=== PATIENT | male | born 1945 | race Hispanic/Latino ===

== ENCOUNTER 2023-07-28 05:40 | Observation (INO) | payer OTHER ==
[2023-07-23 13:38] LABS: BASOPHILS # (AUTO) 0.04 K/uL (0.00-0.20); BASOPHILS % (AUTO) 0.3 % (0.0-5.0); EOSINOPHILS # (AUTO) 0.22 K/uL (0.00-0.70); EOSINOPHILS % (AUTO) 1.8 % (0.0-8.0); HEMATOCRIT 29.3 % (42-54); IMMATURE GRANULOCYTE ABSOLUTE 0.09 K/uL (0-1); LYMPHOCYTES # (AUTO) 1.9 K/uL (1.0-4.8); LYMPHOCYTES % (AUTO) 15.5 % (21.0-51.0); MEAN CORPUSCULAR HGB CONC 34.1 g/dL (32.0-36.0); MEAN CORPUSCULAR VOLUME 96.7 fL (79-99); MONOCYTES % (AUTO) 8.2 % (3.0-13.0); NEUTROPHILS # (AUTO) 8.9 K/uL (1.8-7.7); NEUTROPHILS % (AUTO) 73.5 % (40.0-77.0); PLATELET COUNT (AUTO) 253 K/uL (130-400); RED BLOOD CELL COUNT(AUTO) 3.03 MIL/uL (4.50-6.20); RED CELL DISTRIBUTION WIDTH 13.5 % (11.0-15.5); WHITE BLOOD COUNT (AUTO) 12.1 K/uL (4.8-10.8)
[2023-07-23 13:45] VITALS: BP 146/67; PULSE 89; RESP 18
[~2023-07-28] VITALS: Ht 154.9 cm; Wt 70.9 kg
[2023-07-28] VITALS (38 sets, daily range): BP systolic 127–187; BP diastolic 47–95; PULSE 62–103; RESP 15–20; O2SAT 98–99
[~2023-07-28 05:40] MED LIST: AEC81 PO; ALBU6.7H14 IH; ATOR40TA71 PO; BUDE10.2 IH; CARV6.25 PO; CETI10TA57 PO; CYAN1TAB17 PO; DOXA4TAB3 PO; FAMO40TA7 PO; GLIP1TAB6 PO; HYDR50TA PO; LOSA100T59 PO; MONT-39 PO; OMEP40CA21 PO; SITA100T12 PO
[2023-07-28] MEDS ORDERED: CEFAZOLIN SODIUM 2 GM VIAL ONE (05:54)
[2023-07-28] MEDS ORDERED: 0.9%NACL 1000ML 1,000 ML IV ONE ×2 (05:54→11:15)
[2023-07-28 06:16] LABS: BASOPHILS # (AUTO) 0.04 K/uL (0.00-0.20); BASOPHILS % (AUTO) 0.4 % (0.0-5.0); EOSINOPHILS # (AUTO) 0.22 K/uL (0.00-0.70); HEMATOCRIT 31.5 % (42-54); IMMATURE GRANULOCYTE ABSOLUTE 0.06 K/uL (0-1); LYMPHOCYTES # (AUTO) 2.4 K/uL (1.0-4.8); LYMPHOCYTES % (AUTO) 21.9 % (21.0-51.0); MEAN CORPUSCULAR HEMOGLOBIN 32.3 pg (27.0-33.0); MEAN CORPUSCULAR VOLUME 97.8 fL (79-99); MONOCYTES # (AUTO) 0.8 K/uL (0.1-1.0); MONOCYTES % (AUTO) 7.6 % (3.0-13.0); NEUTROPHILS # (AUTO) 7.3 K/uL (1.8-7.7); NEUTROPHILS % (AUTO) 67.5 % (40.0-77.0); PLATELET COUNT (AUTO) 224 K/uL (130-400); RED BLOOD CELL COUNT(AUTO) 3.22 MIL/uL (4.50-6.20); RED CELL DISTRIBUTION WIDTH 13.2 % (11.0-15.5); WHITE BLOOD COUNT (AUTO) 10.8 K/uL (4.8-10.8)
[2023-07-28 06:22] LABS: CREATININE 1.1 mg/dL (0.5-1.5); POTASSIUM 3.8 mmol/L (3.5-5.1)
[2023-07-28 06:29] LABS: INR 0.94 (0.85-1.15); PROTHROMBIN TIME 10.9 SEC (9.6-11.6)
[2023-07-28 06:30] LABS: PARTIAL THROMBOPLASTIN TIME 27.1 SEC (26.3-35.5)
[2023-07-28] MEDS ORDERED: TRANEXAMIC ACID 1000MG/10ML ONE (06:41)
[2023-07-28] MEDS ORDERED: CEFAZOLIN SODIUM 1 GM VIAL ONE (06:42)
[2023-07-28] MEDS ORDERED: GENTAMICIN SULFATE 80 MG/2 ML VIAL ONE (06:42)
[2023-07-28] MEDS ORDERED: ONDANSETRON 4MG INJ ONE (06:48)
[2023-07-28] MEDS ORDERED: DEXAMETHASONE SOD PHOSPHATE 10MG/ML 1ML VIAL ONE (06:48)
[2023-07-28] MEDS ORDERED: PROPOFOL 10 MG/ML 20ML VIAL IV ONE (06:49)
[2023-07-28] MEDS ORDERED: PROPOFOL 1000 MG/100 ML 100 ML IV ONE (06:50)
[2023-07-28] MEDS ORDERED: MIDAZOLAM HCL 1 MG/ML 2ML VIAL ONE (06:52)
[2023-07-28] MEDS ORDERED: PHENYLEPHRINE HCL 10 MG/ML 1ML VIAL IV ONE (06:52)
[2023-07-28] MEDS ORDERED: CEFAZOLIN SODIUM 2 GM VIAL IVPB ONE ×2 (07:00→15:00)
[2023-07-28] MEDS ORDERED: 0.9%NACL 48.45 ML, ROPIVACAINE 0.5% 49.25ML, EPINEPH 0.5MG KETOROLAC 30MG,CLONIDINE 80MCG IV PRN ×5 (07:00)
[2023-07-28] MEDS ORDERED: GENTAMICIN SULFATE 80 MG/2 ML VIAL TP ONE (07:37)
[2023-07-28] MEDS ORDERED: TRANEXAMIC ACID 1000MG/10ML IV ONE ×4 (07:37→08:25)
[2023-07-28] MEDS ORDERED: CEFAZOLIN SODIUM 2 GM VIAL IJ ONE (07:37)
[2023-07-28] MEDS ORDERED: EPHEDRINE SULFATE 50 MG/ML AMPULE ONE (07:50)
[2023-07-28] MEDS ORDERED: HYDRALAZINE 20MG/ML VIAL ONE (09:53)
[2023-07-28] MEDS ORDERED: HYDROMORPHONE PCA 10 MG/50 ML 50 ML IV PRN (12:30)
[2023-07-28] MEDS ORDERED: ACETAMINOPHEN 325 MG TAB PO PRN ×2 (12:30→13:30)
[2023-07-28] MEDS ORDERED: DIPHENOXYLATE HCL/ATROPINE 2.5/0.025 MG TAB PO PRN (12:30)
[2023-07-28] MEDS ORDERED: DIPHENHYDRAMINE HCL 25 MG CAPSULE PO PRN (12:30)
[2023-07-28] MEDS ORDERED: MAG/ALUM/SIMETH 30 ML UDCUP PO PRN (12:30)
[2023-07-28] MEDS ORDERED: BENZOCAINE/MENTH/CETYLPYRD CL 1 EACH LOZENGE MM PRN (12:30)
[2023-07-28] MEDS ORDERED: LACTULOSE 20 GM/30 ML UDCUP PO PRN (12:30)
[2023-07-28] MEDS ORDERED: ONDANSETRON 4MG INJ IVP PRN (12:30)
[2023-07-28] MEDS ORDERED: ALBUTEROL 0.083% 2.5 MG/3 ML INH IH PRN (14:00)
[2023-07-28] MEDS ORDERED: HYDROMORPH /0.9% NACL/PF PCA 50 ML IV ONE (14:00)
[2023-07-28] MEDS: SYMBICORT 160-4.5 MCG INHALER IH SCH (21:00)
[2023-07-28] MEDS ORDERED: METFORMIN HCL PO SCH (21:00)
[2023-07-28] MEDS ORDERED: DOXAZOSIN MESYLATE 2 MG TABLET PO SCH (21:00)
[2023-07-28] MEDS ORDERED: GLUCAGON 1MG KIT 1 MG ML IM PRN (21:00)
[2023-07-28] MEDS ORDERED: [UNRECOGNIZED DRUG - OTHER] PO SCH (21:00)
[2023-07-28] MEDS ORDERED: GLIPIZIDE PO SCH (21:00)
[2023-07-28] MEDS ORDERED: DEXTROSE 50%-WATER 50 ML DISP.SYRIN IV PRN (21:00)
[2023-07-28] MEDS ORDERED: ATORVASTATIN 40 MG TABLET PO SCH (21:00)
[2023-07-28] MEDS: INSULIN HUMULIN R 100 UNIT/ML 3ML SQ SCH (21:00)
[2023-07-28] MEDS ORDERED: GLIPIZIDE METFORMIN PO SCH (21:00)
[2023-07-28] MEDS ORDERED: CETIRIZINE HCL 5 MG TABLET PO SCH (21:00)
[2023-07-28] MEDS ORDERED: (Sitagliptin Phosphate (Januvia) 100 MG) PO SCH (21:00)
[2023-07-28] MEDS ORDERED: MONTELUKAST SODIUM 10 MG TAB PO SCH (21:00)
[2023-07-28] MEDS: CARVEDILOL 6.25 MG TABLET PO SCH (21:07)
[2023-07-28] MEDS: 0.9%NACL 1000ML 1,000 ML IV SCH (22:30)
[2023-07-28] MEDS: CEFAZOLIN SODIUM 2 GM VIAL IVPB SCH (23:21)
[2023-07-29 04:00] VITALS: BP 144/60; PULSE 81; RESP 20
[2023-07-29 04:19] LABS: BASOPHILS # (AUTO) 0.02 K/uL (0.00-0.20); BASOPHILS % (AUTO) 0.1 % (0.0-5.0); IMMATURE GRANULOCYTE ABSOLUTE 0.09 K/uL (0-1); LYMPHOCYTES # (AUTO) 1.1 K/uL (1.0-4.8); LYMPHOCYTES % (AUTO) 8.3 % (21.0-51.0); MEAN CORPUSCULAR HEMOGLOBIN 32.2 pg (27.0-33.0); MEAN CORPUSCULAR HGB CONC 34.2 g/dL (32.0-36.0); MEAN CORPUSCULAR VOLUME 94.2 fL (79-99); MONOCYTES # (AUTO) 1.1 K/uL (0.1-1.0); MONOCYTES % (AUTO) 8.3 % (3.0-13.0); NEUTROPHILS # (AUTO) 11.2 K/uL (1.8-7.7); NEUTROPHILS % (AUTO) 82.6 % (40.0-77.0); PLATELET COUNT (AUTO) 198 K/uL (130-400); RED BLOOD CELL COUNT(AUTO) 2.76 MIL/uL (4.50-6.20); RED CELL DISTRIBUTION WIDTH 13.2 % (11.0-15.5); WHITE BLOOD COUNT (AUTO) 13.6 K/uL (4.8-10.8)
[2023-07-29 04:26] LABS: CREATININE 0.8 mg/dL (0.5-1.5); POTASSIUM 3.9 mmol/L (3.5-5.1)
[2023-07-29 04:50] LABS: WBC MORPHOLOGY CONSISTENT W/DIFF
[2023-07-29] MEDS: TRAMADOL HCL 50 MG TABLET PO PRN ×2 (05:02→14:15)
[2023-07-29] MEDS: INSULIN HUMULIN R 100 UNIT/ML 3ML SQ SCH ×2 (05:36→12:02)
[2023-07-29] MEDS: CEFAZOLIN SODIUM 2 GM VIAL IVPB SCH (06:21)
[2023-07-29 06:44] VITALS: PULSE 71; RESP 18; O2SAT 97
[2023-07-29 08:00] VITALS: BP 146/76; PULSE 101; RESP 17; O2SAT 99
[2023-07-29] MEDS: 0.9%NACL 1000ML 1,000 ML IV SCH (08:34)
[2023-07-29] MEDS: CARVEDILOL 6.25 MG TABLET PO SCH (08:40)
[2023-07-29] MEDS: SYMBICORT 160-4.5 MCG INHALER IH SCH (08:45)
[2023-07-29] MEDS ORDERED: PYRIDOXINE PO SCH (09:00)
[2023-07-29] MEDS ORDERED: LOSARTAN 100 MG TABLET PO SCH (09:00)
[2023-07-29] MEDS ORDERED: PANTOPRAZOLE 40 MG TAB DR PO SCH (09:00)
[2023-07-29] MEDS ORDERED: RIVAROXABAN 10 MG TABLET PO SCH (09:00)
[2023-07-29] MEDS ORDERED: [UNRECOGNIZED DRUG - OTHER] PO SCH (09:00)
[2023-07-29] MEDS ORDERED: ASPIRIN 81 MG EC TAB PO SCH (09:00)
[2023-07-29] MEDS ORDERED: FAMOTIDINE 20MG TAB PO SCH (09:00)
[2023-07-29] MEDS ORDERED: CYANOCOBALAMIN PO SCH (09:00)
[2023-07-29] MEDS ORDERED: GLIPIZIDE METFORMIN PO SCH (09:00)
[2023-07-29] MEDS ORDERED: HYDROCHLOROTHIAZIDE 25 MG TABLET PO SCH (09:00)
[2023-07-29 11:49] VITALS: BP 132/50; PULSE 74; RESP 16
[2023-07-29 16:00] VITALS: BP 162/70; PULSE 79; RESP 16
== END 2023-07-29 18:10 ==
LOC: DAH 05:40 → DAHIP 05:41 → DAH 05:41 → 4BH 13:06
PROVIDERS: ADMIT Orthopaedic Surgery; ATTEND Orthopaedic Surgery
DX: M17.11 Unilateral primary osteoarthritis, right knee (principal); J45.909 Unspecified asthma, uncomplicated; E03.9 Hypothyroidism, unspecified; I12.9 Hypertensive chronic kidney disease with stage 1 through stage 4 chronic kidney disease, or unspecified chronic kidney disease; E11.22 Type 2 diabetes mellitus with diabetic chronic kidney disease; N18.30 Chronic kidney disease, stage 3 unspecified; E11.42 Type 2 diabetes mellitus with diabetic polyneuropathy; I25.10 Atherosclerotic heart disease of native coronary artery without angina pectoris; E78.5 Hyperlipidemia, unspecified; M81.0 Age-related osteoporosis without current pathological fracture; K21.9 Gastro-esophageal reflux disease without esophagitis; Z79.82 Long term (current) use of aspirin
CPT/HCPCS: 85025 ×3; 36415 ×3; 93005; 87641; 27447; 96376 ×2; 96365; 96366 ×2; 96375; 80048 ×2; 85610; 85730; 82948 ×7; 97161; 97012; 97116 ×2; 97530 ×3; 94664; A6260; G0378 ×30; G0379; A4223 ×2; A4510; A4663; J7030 ×4; A4215 ×2; A4649 ×4; J0690 ×7; J3490 ×4; J1100; J0360; J1580 ×2; J2250; J2704; J2405; J2371; A6223; A4930; C1763 ×2; C1776; A5120; A4222; A4221; A6450